=== PATIENT | female | born 1940 | race Caucasian/White ===

== ENCOUNTER 2020-07-06 14:35 | Observation (INO) | payer MEDICARE ==
[~2020-07-06] VITALS: Ht 160 cm; Wt 65.8 kg
--- NOTE | 2020-07-06 14:53 | EKG ---
[address] [address] Test Date: 2020-07-06 Test Time: 14:46:58 Pat Name: HOMAR MEZA Department: Room: Gender: F Director Consumer: : 1940 Requested By: JESSICA JOSHI Order Number: [id number] Reading MD: Measurements Intervals [place] Rate: 59 P: MI: QRS: 13 QRSD: 90 T: -49 QT: 380 QTc: 380 Interpretive Statements IRREGULAR RHYTHM, NO P-WAVE FOUND INCOMPLETE RIGHT BUNDLE BRANCH BLOCK T ABNORMALITY IN ANTEROLATERAL LEADS INFEROLATERAL LEADS ABNORMAL ECG RI6.02 No previous ECG available for comparison
--- NOTE | 2020-07-06 14:55 | PHYS DOC ---
Past History Past Medical History: Dementia, Diabetes, High Cholesterol, Hypertension, Other (CLL) Adult General Chief Complaint Chief Complaint: ALTERED MENTAL STATUS HPI HPI Patient is a 79-year-old female who presents via EMS for altered mental status. Patient lives at home alone and typically performs activities of daily living without issue. Home health nurse visited her today and noticed patient had decreased level of mentation and was not oriented to time which is unusual for patient. Home health nurse subsequently called EMS for transport to our facility for further evaluation. On arrival, patient hemodynamically stable. She has no complaints at present. She denies any recent medication changes. Admits history of atrial fibrillation and is on Eliquis, no trauma and/or falls in the past month. States she had episode of severe hypoglycemia approximately 1 month ago that required her to go to the hospital for treatment, further history regarding this incident is unclear. Patient has family friend who regularly checks on her and states these episodes have been increasing in frequency in the past 1 month. She has had been found with the car on stationary in her garage opening and closing garage door without any clue what she is doing. Daughter who lives in [place] was contacted and confirmed concerning stories like these. Patient's PCP (Dr. Bell) was contacted and case was discussed. He reports removing high risk medication such as insulin off patient's medication regimen last month. He has been trying to steadily decrease patient's high risk medication such as Ambien, benzodiazepines and narcotics. With that said, PCP is unclear if patient has been compliant with this as she lives alone Review of Systems Review of Systems Fourteen body systems of review of systems have been reviewed. See HPI for pertinent positives and negative responses, other tao all other systems are negative, non-pertinent or non-contributory Physical Exam Physical Exam Constitutional: Well developed, well nourished, no acute distress, non-toxic appearance. No obvious signs of trauma HENT: Normocephalic, atraumatic, bilateral external ears normal, oropharynx moist, no oral exudates, nose normal. Eyes: PERRLA, EOMI, conjunctiva normal, no discharge. Neck: Normal range of motion, no tenderness, supple, no stridor. Cardiovascular: Heart rate regular, irregular rhythm, no murmurs rubs or gallops Lungs & Thorax: Bilateral breath sounds clear to auscultation Abdomen: Bowel sounds normal, soft, no tenderness, no masses, no pulsatile masses. Nonsurgical abdomen, no peritoneal signs Skin: Warm, dry, no erythema, no rash. Back: No tenderness, no CVA tenderness. Extremities: No tenderness, no cyanosis, no clubbing, ROM intact, no edema. Neurologic: Alert and oriented X 3, grossly normal motor & sensory function, no focal deficits noted. Gait unremarkable Psychologic: Affect normal, judgement normal, mood normal. Current Patient Data Vital Signs Vital Signs Date Time Temp Pulse Resp B/P (MAP) Pulse Ox O2 Delivery O2 Flow Rate FiO2 07/06/20 14:57 98.1 69 16 150/109 (123) 98 Room Air Lab Results Laboratory Tests Test 07/06/20 14:40 07/06/20 14:42 White Blood Count 9.0 x10^3/uL (4.0-11.0) Red Blood Count 4.39 x10^6/uL (3.50-5.40) Hemoglobin 12.2 g/dL (12.0-15.5) Hematocrit 37.8 % (36.0-47.0) Mean Corpuscular Volume 86 fL (79-100) Mean Corpuscular Hemoglobin 28 pg (25-35) Mean Corpuscular Hemoglobin Concent 32 g/dL (31-37) Red Cell Distribution Width 17.1 % (11.5-14.5) Platelet Count 133 x10^3/uL (140-400) Neutrophils (%) (Auto) 59 % (31-73) Lymphocytes (%) (Auto) 28 % (24-48) Monocytes (%) (Auto) 9 % (0-9) Eosinophils (%) (Auto) 3 % (0-3) Basophils (%) (Auto) 1 % (0-3) Neutrophils # (Auto) 5.3 x10^3uL (1.8-7.7) Lymphocytes # (Auto) 2.6 x10^3/uL (1.0-4.8) Monocytes # (Auto) 0.8 x10^3/uL (0.0-1.1) Eosinophils # (Auto) 0.2 x10^3/uL (0.0-0.7) Basophils # (Auto) 0.1 x10^3/uL (0.0-0.2) Sodium Level 140 mmol/L (136-145) Potassium Level 3.5 mmol/L (3.5-5.1) Chloride Level 100 mmol/L (98-107) Carbon Dioxide Level 29 mmol/L (21-32) Anion Gap 11 (6-14) Blood Urea Nitrogen 16 mg/dL (7-20) Creatinine 1.0 mg/dL (0.6-1.0) Estimated GFR (Cockcroft-Gault) 53.8 Glucose Level 157 mg/dL (70-99) Calcium Level 9.2 mg/dL (8.5-10.1) Troponin I Quantitative < 0.017 ng/mL (0-0.055) Glucose (Fingerstick) 144 mg/dL (70-99) EKG EKG EKG ordered and interpreted by myself at 1451 hrs. as atrial fibrillation that is rate controlled with ventricular rate of 59 bpm, no QTC prolongation, no axis deviation, T wave inversions in leads II, 3, aVF, no STEMI. No prior EKG to compare to Radiology/Procedures Radiology/Procedures PROCEDURE: CT HEAD WO CONTRAST CT Head W/O Contrast: History: Reason: AMS, CONFUSION / Spl. Instructions: / History: Comparison: none Axial images were obtained without contrast. There is moderate diffuse atrophy. There is no mass effect, extraaxial fluid collections or hydrocephalus. There is no focal loss of vicente-white matter distinction to suggest acute ischemia, i.e. stroke. Impression: No acute findings. [facility] Compliance Statement: One or more of the following individualized dose reduction techniques were utilized for this examination: 1. Automated exposure control 2. Adjustment of the mA and/or kV according to patient size 3. Use of iterative reconstruction technique Electronically signed by: Froy Anne III, MD (07/06/2020 3:05 PM) [facility] PROCEDURE: PORTABLE CHEST 1V EXAM: PORTABLE CHEST 1V INDICATION: Reason: AMS / Spl. Instructions: / History: . TECHNIQUE: Single view COMPARISON: None FINDINGS: The heart size is upper normal. The great vessels appear unremarkable. There is no hilar or mediastinal mass. The lungs are clear. There is no pleural effusion or pneumothorax. There are no significant osseous abnormalities. IMPRESSION: No active cardiopulmonary disease. Electronically signed by: Aide Valentin MD (07/06/2020 3:18 PM) [id number] Heart Score HEART Score for Chest Pain: HEART Score for Chest Pain Response (Comments) Value History Slighlty/Non-Suspicious 0 ECG Normal 0 Age > 65 2 Risk Factors >3 Risk Factors or Hx CAD 2 Troponin < Normal Limit 0 Total 4 Risk Factors: Risk Factors: DM, Current or recent (<one month) smoker, HTN, HLP, family history of CAD, obesity. Risk Scores: Risk Factors: DM, Current or recent (<one month) smoker, HTN, HLP, family history of CAD, obesity. Course & Med Decision Making Course & Med Decision Making Pertinent Labs and Imaging studies reviewed. (See chart for details) Discussed with patient, daughter, and PCP most likely diagnosis of altered mentation from polypharmacy. Still pending urinalysis at this time to rule out any true infectious causes of patient's condition Patient otherwise ANO x3 and hemodynamically stable at present. I discussed need for admission with hospitalist, Dr. Oseguera, who agreed to admit patient under his care for continued medical management. We agreed she would benefit from observation and will omit high risk medication administration such as Ambien Patient and daughter notified of this decision and both amenable. All questions and concerns addressed prior to ER departure to [facility] for further medical management in stable condition Dragnay Disclaimer Dragon Disclaimer This electronic medical record was generated, in whole or in part, using a voice recognition dictation system. Departure Departure: Impression: Primary Impression: AMS (altered mental status) Additional Impressions: At risk for polypharmacy Family history of CLL (chronic lymphoid leukemia) Atrial fibrillation Anticoagulant prescribed Disposition: ADMITTED INPT THIS HOSP ([facility]) Admitting Physician: Kenneth Oseguera Condition: STABLE Problem Qualifiers JESSICA JOSHI DO Jul 06, 2020 14:55
[2020-07-06 14:58] LABS: BASO # 0.1 x10^3/uL (0.0-0.2); BASO % 1 % (0-3); EOS # 0.2 x10^3/uL (0.0-0.7); EOS % 3 % (0-3); HEMATOCRIT 37.8 % (36.0-47.0); HEMOGLOBIN 12.2 g/dL (12.0-15.5); LYMPH # 2.6 x10^3/uL (1.0-4.8); LYMPH % 28 % (24-48); MEAN CORPUSCULAR HEMOGLOBIN 28 pg (25-35); MEAN CORPUSCULAR HGB CONC 32 g/dL (31-37); MEAN CORPUSCULAR VOLUME 86 fL (79-100); MONO # 0.8 x10^3/uL (0.0-1.1); MONO % 9 % (0-9); NEUT # 5.3 x10^3uL (1.8-7.7); NEUT % 59 % (31-73); PLATELET COUNT 133 x10^3/uL (140-400); RED BLOOD COUNT 4.39 x10^6/uL (3.50-5.40); RED CELL DISTRIBUTION WIDTH 17.1 % (11.5-14.5)
[2020-07-06 15:08] LABS: CALCIUM 9.2 mg/dL (8.5-10.1); GFR 53.8; POTASSIUM 3.5 mmol/L (3.5-5.1)
--- NOTE | 2020-07-06 15:09 | RAD ---
CT Head W/O Contrast: History: Reason: AMS, CONFUSION / Spl. Instructions: / History: Comparison: none Axial images were obtained without contrast. There is moderate diffuse atrophy. There is no mass effect, extraaxial fluid collections or hydrocephalus. There is no focal loss of vicente-white matter distinction to suggest acute ischemia, i.e. stroke. Impression: No acute findings. [facility] Compliance Statement: One or more of the following individualized dose reduction techniques were utilized for this examination: 1. Automated exposure control 2. Adjustment of the mA and/or kV according to patient size 3. Use of iterative reconstruction technique Electronically signed by: Froy Anne III, MD (07/06/2020 3:05 PM) [facility]
--- NOTE | 2020-07-06 15:21 | RAD ---
EXAM: PORTABLE CHEST 1V INDICATION: Reason: AMS / Spl. Instructions: / History: . TECHNIQUE: Single view COMPARISON: None FINDINGS: The heart size is upper normal. The great vessels appear unremarkable. There is no hilar or mediastinal mass. The lungs are clear. There is no pleural effusion or pneumothorax. There are no significant osseous abnormalities. IMPRESSION: No active cardiopulmonary disease. Electronically signed by: Aide Valentin MD (07/06/2020 3:18 PM) [id number]
[2020-07-06 19:27] VITALS: BP 168/79
[2020-07-06 19:31] LABS: BILIRUBIN,URINE NEG (NEG); CLARITY,URINE HAZY; COLOR,URINE STRAW; GLUCOSE,URINE NEG (NEG)
[2020-07-06 19:32] LABS: BACTERIA,URINE MOD /HPF (0-FEW); NITRITE,URINE NEG (NEG); SQUAMOUS EPITHELIAL CELL,UR MANY /LPF; UROBILINOGEN,URINE 0.2 mg/dL (0.2 mg/dL)
[2020-07-06] MEDS ORDERED: diazePAM 2 MG TABLET. PO PRN (20:45)
[2020-07-06] MEDS ORDERED: HYDROcodone/APAP 10/325 1 TAB TABLET PO PRN (20:45)
[2020-07-06] MEDS ORDERED: FUROSEMIDE 40 MG TABLET PO SCH (20:45)
[2020-07-06] MEDS ORDERED: ACETAMINOPHEN 500 MG TABLET PO PRN (20:45)
[2020-07-06] MEDS ORDERED: ZOLPIDEM 5 MG TABLET. PO PRN (20:45)
[2020-07-06] MEDS ORDERED: hydrOXYzine HCL 25 MG TABLET PO PRN (20:45)
[2020-07-06] MEDS ORDERED: MECLIZINE 12.5 MG TABLET. PO PRN (20:45)
[2020-07-06] MEDS ORDERED: DOXYCYCLINE HYCLATE 100 MG TABLET PO SCH (21:00)
[2020-07-06] MEDS ORDERED: MORPHINE ER 15 MG TABLET.ER PO SCH (21:00)
[2020-07-06] MEDS ORDERED: NITROFURANTOIN MONOHYD/M-CRYST 100 MG CAPSULE. PO SCH (21:00)
[2020-07-06] MEDS ORDERED: CEPHALEXIN 250 MG CAPSULE PO ONE (21:00)
[2020-07-06] MEDS ORDERED: COLESTIPOL HCL 1 GM TABLET. PO SCH (22:00)
[2020-07-06] MEDS: DULoxetine HCL 30 MG CAPSULE.DR PO SCH (22:10)
[2020-07-06] MEDS: METOPROLOL TART IMMED RELEASE 50 MG TABLET PO SCH (22:11)
[2020-07-06] MEDS: APIXABAN 5 MG TABLET. PO SCH (22:11)
[2020-07-06] MEDS ORDERED: MONTELUKAST 10 MG TABLET. PO SCH (22:15)
[2020-07-06 22:24] VITALS: BP 174/77
--- NOTE | 2020-07-06 22:40 | NUR ---
Pt admitted to [facility] via EMS accompanied by ER staff. Pt ambulated from gurney to bed w/o difficulty. Pt calm and cooperative during assessment. Pt denies any pain at this time. Pt appeared to be alert x4 at beginning of assessment but become slightly forgetful as assessment continued. Pt. belonging are left w/ pt in room. POC was discussed w/ verbal understanding. DR called and medications are reconciled. Call light is in reach and will continue to monitor.
[2020-07-07 05:26] VITALS: BP 149/82
[2020-07-07] MEDS ORDERED: PANTOPRAZOLE 40 MG TABLET. PO SCH (07:30)
[2020-07-07] MEDS ORDERED: metFORMIN 500 MG TABLET PO SCH (08:00)
[2020-07-07] MEDS ORDERED: POTASSIUM CHLORIDE 10 MEQ TABLET.ER. PO SCH (08:00)
[2020-07-07] MEDS: APIXABAN 5 MG TABLET. PO SCH (08:13)
[2020-07-07] MEDS: DULoxetine HCL 30 MG CAPSULE.DR PO SCH (08:13)
[2020-07-07] MEDS: METOPROLOL TART IMMED RELEASE 50 MG TABLET PO SCH (08:13)
[2020-07-07] MEDS: DIGOXIN 125 MCG TABLET PO SCH ×2 (08:14→08:22)
[2020-07-07 08:22] VITALS: BP 149/82
[2020-07-07] MEDS ORDERED: TRIAMCINOLONE ACETONIDE 0.1% TOPICAL CREAM 15GM TUBE. TP SCH (09:00)
--- NOTE | 2020-07-07 09:56 | HP ---
ADMIT DATE: 07/06/2020 ATTENDING PHYSICIAN: Dr. Chavez. CHIEF COMPLAINT: Altered mentation. HISTORY OF PRESENT ILLNESS: The patient is a pleasant 79-year-old female admitted through the ED with altered mentation. She lives at home. She had home health nurses call on her and they found her to have decreased level of mentation and not oriented to time, which is unusual for the patient. She has been taking oral hydrocodone along with Ambien and this may have accumulated. The home health nurse subsequently called EMS. She is also on Eliquis. She has had diabetes. There are some episodes of hypoglycemia, some recent falls and unfortunately she does not have any family close by. She has a daughter who lives in [place]. 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 Therefore, she had a workup was fairly unremarkable. CT of the head did not show acute changes, we suspect was due to her medications. She was admitted for observation status overnight. PAST MEDICAL HISTORY: Significant for type 2 diabetes, mild dementia, hyperlipidemia, hypertension and supposedly chronic lymphocytic leukemia. I do not see an elevated white count. MEDICATIONS: Reviewed. She was taking Ambien at bedtime, hydrocodone p.r.n., Tylenol, Eliquis twice a day, digoxin, Cymbalta, meclizine, metformin, metoprolol, Singulair, Protonix, potassium, and triamcinolone. ALLERGIES: She has allergies to SULFA, WHICH CAUSES A RASH. SOCIAL HISTORY: She is a nonsmoker, nondrinker. FAMILY HISTORY: Noncontributory. REVIEW OF SYSTEMS: Significant for the confusion. By the time I saw her, she was very alert. She is reading a book. She had no respiratory distress. She denied any fevers, chills, weight loss, decreased appetite. She has no COVID exposure. All other systems reviewed and turned to be negative. PHYSICAL EXAMINATION: GENERAL: When I saw her, this is a pleasant elderly female. INITIAL VITAL SIGNS: Showed a blood pressure 149/82, pulse is 62 and regular, temperature 98.3 degrees Fahrenheit, oxygen saturation 92% on room air. HEENT: Head is without trauma. Pupils are reactive. Sclerae nonicteric. Oropharynx is clear. NECK: Supple, no bruits identified. LUNGS: Otherwise clear. CARDIOVASCULAR: Showed regular heart tones. No gallops. Peripheral pulses are palpable and full. ABDOMEN: Soft, scaphoid, nontender, no guarding. EXTREMITIES: Without cyanosis or edema. NEUROLOGIC: Focally intact. Speech is fluent. SKIN: Otherwise warm and dry. PERTINENT LABORATORY STUDIES: The admission hemoglobin was 12.2 g/dL with white count of 9000. Chemistry panel showed a sodium 140, potassium 3.5 mEq, nonfasting blood sugar 157. Creatinine is 1.0 mg/dL. The obligatory CT of the head done in the ED showed diffuse atrophy, that is moderate, no mass effect. There is no evidence of acute strokes or bleeds. Chest x-ray was clear without any cardiopulmonary process. ASSESSMENT: 1. A 79-year-old female with altered mentation related to her narcotics and benzodiazepines. 2. Underlying dementia that is fairly mild. 3. Essential hypertension. 4. Gastroesophageal reflux disease. 5. Insomnia, which led to her Ambien. PLAN: 1. Observation status. 2. We have held her benzodiazepines and narcotics. 3. Diet as tolerated. 4. Other home meds continued. PETERSON CHAVEZ MD DR: YESENIA/kalyani JOB#: [id number] / [id number] PETERSON Davison
[2020-07-07] MEDS ORDERED: COLE1TAB2 PO (10:24)
[2020-07-07] MEDS ORDERED: TIMO5DRO5 OS (10:24)
[2020-07-07] MEDS ORDERED: MULT200T4 PO (10:24)
[2020-07-07] MEDS ORDERED: ERGO500027 PO (10:24)
[2020-07-07] MEDS ORDERED: ZOLP10TA PO (10:24)
[2020-07-07] MEDS ORDERED: IBRU140C PO (10:24)
[2020-07-07] MEDS ORDERED: DIGO125T17 PO (10:24)
[2020-07-07] MEDS ORDERED: FLUT15.812 NS (10:24)
[2020-07-07] MEDS ORDERED: HYDR25TA PO (10:24)
[2020-07-07] MEDS ORDERED: SITA1TAB11 PO (10:24)
[2020-07-07] MEDS ORDERED: FURO40TA4 PO (10:24)
[2020-07-07] MEDS ORDERED: APIX5TAB3 PO (10:24)
[2020-07-07] MEDS ORDERED: CYAN10002 IM (10:24)
[2020-07-07] MEDS ORDERED: POTA10TA12 PO (10:24)
[2020-07-07] MEDS ORDERED: PANT40TA3 PO (10:24)
[2020-07-07] MEDS ORDERED: ALBU2.5V8 IH (10:24)
[2020-07-07] MEDS ORDERED: TRIA100A TP (10:24)
[2020-07-07] MEDS ORDERED: MONT10TA80 PO (10:24)
[2020-07-07] MEDS ORDERED: METO50TA6 PO (10:24)
[2020-07-07] MEDS ORDERED: DIAZ2TAB PO (10:24)
[2020-07-07] MEDS ORDERED: DULO30CA2 PO (10:24)
[2020-07-07] MEDS ORDERED: MORP15TA80 PO (10:24)
[2020-07-07] MEDS ORDERED: HYDR-2769 PO (10:24)
[2020-07-07] MEDS ORDERED: MECL-75 PO (10:24)
--- NOTE | 2020-07-07 11:12 | NUR ---
DISCHARGE NOTE-Reviewed discharge teaching with patient, medication list reviewed ESPECIALLY discontinued sedating medications. Returning home with services. Telemetry discontinued, PIV discontinued as well. Escorted to exit by staff via wheelchair. Transportation home by taxi.
--- NOTE | 2020-07-07 12:40 | DS ---
DATE OF DISCHARGE: 07/07/2020 ATTENDING PHYSICIAN: Dr. Chavez. FINAL DISCHARGE DIAGNOSES: 1. Altered mentation due to medications, resolved. 2. Paroxysmal atrial fibrillation. 3. Type 2 diabetes mellitus. 4. Essential hypertension. 5. Gastroesophageal reflux disease. 6. Underlying depression. 7. Early onset dementia. HISTORY AND PHYSICAL: This is a pleasant 79-year-old female admitted through the ED with altered mentation. She was sent here by her home health services people. She was not oriented to place and time and was not acting normal. She had been on prescription hydrocodone along with Ambien at bedtime. PHYSICAL EXAMINATION: Please see the dictated note. PERTINENT LABORATORY AND X-RAY STUDIES: The obligatory CT of the head showed no evidence of acute stroke. She did have moderate cortical atrophy. Chest x-ray was entirely clear. Her lab work showed normal blood sugars, nonfasting blood sugar of 144. Troponin level was nonischemic. Hemoglobin maintained at 12.2 g/dL with white count of 9000. Electrolytes within normal range. Creatinine is 1.0 mg/dL. COURSE IN THE HOSPITAL: The patient was admitted for observation overnight. We held her Ambien and pain meds, some of the other home meds were continued. She did well. She was quite alert. I had a fairly good conversation with her. Unfortunately, she lives alone. She has some family, a son lives overseas in [place], a daughter lives in [place]. She has good family support. She is currently living in her own home. She was stable, her vitals were stable and she wanted to go home. I felt this was reasonable. I have encouraged her to take the Ambien only as needed and to certainly not to take it if she did not have any issues with insomnia. Same thing with the pain medicine, she should be judicious in her use of her pain medications. Her other home medications are unchanged. I would recommend that she continue her Eliquis twice a day as prescribed, digoxin 125 mcg daily, metformin 1000 mg b.i.d., potassium supplementation 10 mEq daily, Protonix 40 mg daily, metoprolol 50 mg b.i.d., Eliquis as noted 5 b.i.d., Singulair 10 mg daily, Cymbalta 30 mg b.i.d., and meclizine as needed. She had some prescriptions in the past for MS Contin as well as hydrocodone. I recommended that she stop these medicines at this time. Same thing with prescribed Valium and Ambien. The patient was then discharged from our hospital in stable condition with explicit instructions and followup care. I suggested a followup visit with Dr. Rendon at the regular scheduled time. PETERSON CHAVEZ MD DR: YESENIA/kalyani JOB#: [id number] / [id number] PETERSON Davison
--- NOTE | 2020-07-08 14:59 | NUR ---
IP: patient notified of COVID result.
== END 2020-07-07 11:10 | disposition home health service (06) ==
LOC: ER 14:35 → INTOOBSV 18:00 → 1 SOUTH 18:00
PROVIDERS: ADMIT Hospitalist; ATTEND Hospitalist
DX: R41.82 Altered mental status, unspecified (principal); Z20.828 Contact with and (suspected) exposure to other viral communicable diseases; T42.4X5A Adverse effect of benzodiazepines, initial encounter; G47.00 Insomnia, unspecified; F03.90 Unspecified dementia, unspecified severity, without behavioral disturbance, psychotic disturbance, mood disturbance, and anxiety; I10 Essential (primary) hypertension; K21.9 Gastro-esophageal reflux disease without esophagitis; E11.649 Type 2 diabetes mellitus with hypoglycemia without coma; I48.0 Paroxysmal atrial fibrillation; E78.5 Hyperlipidemia, unspecified; E78.00 Pure hypercholesterolemia, unspecified; F32.9 Major depressive disorder, single episode, unspecified; C91.10 Chronic lymphocytic leukemia of B-cell type not having achieved remission; Z79.84 Long term (current) use of oral hypoglycemic drugs; Z79.01 Long term (current) use of anticoagulants; Z79.899 Other long term (current) drug therapy
CPT/HCPCS: 36415; 70450; 71045; 80048; 81001; 82947; 84484; 85025; 87086; 93005; 99285; G0378; U0003; G0379

== ENCOUNTER → 2021-01-26 | Outpatient (CLI) | payer MEDICARE ==
[~2021-01-26] MED LIST: ALBU2.5V8 IH; APIX5TAB3 PO; COLE1TAB2 PO; CYAN10002 IM; DIAZ2TAB PO; DIGO125T17 PO; DULO30CA2 PO; ERGO500027 PO; FLUT15.812 NS; FURO40TA4 PO; HYDR-2769 PO; HYDR25TA PO; IBRU140C PO; MECL-75 PO; METO50TA6 PO; MONT10TA80 PO; MORP15TA80 PO; MULT200T4 PO; PANT40TA3 PO; POTA10TA12 PO; SITA1TAB11 PO; TIMO5DRO5 OS; TRIA100A TP; ZOLP10TA PO
[2021-01-26 12:04] LABS: HEMATOCRIT 24.2 % (36.0-47.0); HEMOGLOBIN 7.8 g/dL (12.0-15.5); RED BLOOD COUNT 2.66 x10^6/uL (3.50-5.40); RED CELL DISTRIBUTION WIDTH 16.9 % (11.5-14.5); WHITE BLOOD COUNT 17.2 x10^3/uL (4.0-11.0)
[2021-01-26 13:00] VITALS: BP 107/45
[2021-01-26 14:08] VITALS: BP 104/48
[2021-01-26 14:38] VITALS: BP 106/52
[2021-01-26 15:38] VITALS: BP 96/51
--- NOTE | 2021-01-26 16:08 | NUR ---
Blood Transfusion started at 1423. Tubing was primed with Normal Saline and then primed with blood. Transfusion started at 75mls/hr, patient monitored closely x 15 mins. No reaction noted, transfusion increased to 125mls/hr.
[2021-01-26 16:38] VITALS: BP 106/46
[2021-01-26 17:16] LABS: HEMATOCRIT 26.7 % (36.0-47.0); HEMOGLOBIN 8.7 g/dL (12.0-15.5); RED BLOOD COUNT 2.84 x10^6/uL (3.50-5.40); RED CELL DISTRIBUTION WIDTH 16.9 % (11.5-14.5); WHITE BLOOD COUNT 15.4 x10^3/uL (4.0-11.0)
--- NOTE | 2021-01-26 17:46 | NUR ---
Infusion completed. Patient tolerated the infusion well. No reactions noted. Peripheral IV flushed and removed with no complications. Patient left the unit via ambulation escorted by this RN. Patient transported home by a friend.
== END | disposition home or self-care (01) ==
LOC: OPINF 11:29
PROVIDERS: ATTEND Family Medicine
DX: D64.9 Anemia, unspecified (principal); I10 Essential (primary) hypertension; K21.9 Gastro-esophageal reflux disease without esophagitis; I48.0 Paroxysmal atrial fibrillation; E78.00 Pure hypercholesterolemia, unspecified; F32.9 Major depressive disorder, single episode, unspecified; E78.5 Hyperlipidemia, unspecified; Z79.01 Long term (current) use of anticoagulants; Z79.84 Long term (current) use of oral hypoglycemic drugs; Z79.899 Other long term (current) drug therapy
CPT/HCPCS: 36415; 36430; 85027; 86850; 86900; 86901; 86920; P9016

== ENCOUNTER 2021-10-09 12:21 | Emergency (ER) | payer MEDICARE ==
[~2021-10-09] VITALS: Ht 160 cm; Wt 77.0 kg
[~2021-10-09 12:21] MED LIST changes: -ERGO500027 PO; +ERGO500090 PO; +POTA-116 PO; -POTA10TA12 PO
[2021-10-09] MEDS ORDERED: IOHEXOL 350 MG/ML 100 ML VIAL. IV ONE (12:30)
--- NOTE | 2021-10-09 12:40 | RAD ---
EXAM: CT head without contrast INDICATION: Stroke alert, right-sided weakness and facial 0 COMPARISON: CT head 07/06/2020 TECHNIQUE: Axial CT imaging through the head without intravenous contrast. Sagittal and coronal refor mats were obtained. One or more of the following individualized dose reduction techniques were utilized for this examinat ion: 1. Automated exposure control 2. Adjustment of the mA and/or kV according to patient size 3. Use of iterative reconstruction technique. FINDINGS: ventricles and sulci are mildly enlarged, reflecting age-related volume loss. Martines-white matter diffe rentiation is maintained. There is no intracranial hemorrhage, acute infarct, or mass lesion. Basal c isterns are clear. The skull and scalp are intact. Paranasal sinuses and mastoid air cells are clear. Globes and orbits are intact.. IMPRESSION: No acute intracranial abnormality. FOR INTERNAL CODING PURPOSES Critical result: Findings discussed with PATRICK ROMERO DO at 10/09/2021 12:36 PM. RESULT CODE: (C) Electronically signed by: Yokasta Villarreal MD (10/09/2021 12:38 PM) [id number]
[2021-10-09 12:45] LABS: BASO # 0.1 x10^3/uL (0.0-0.2); BASO % 0 % (0-3); EOS # 0.3 x10^3/uL (0.0-0.7); EOS % 2 % (0-3); HEMATOCRIT 37.8 % (36.0-47.0); HEMOGLOBIN 12.1 g/dL (12.0-15.5); LYMPH # 12.1 x10^3/uL (1.0-4.8); LYMPH % 66 % (24-48); MEAN CORPUSCULAR HEMOGLOBIN 28 pg (25-35); MEAN CORPUSCULAR HGB CONC 32 g/dL (31-37); MEAN CORPUSCULAR VOLUME 87 fL (79-100); MONO # 0.9 x10^3/uL (0.0-1.1); MONO % 5 % (0-9); NEUT # 5.1 x10^3uL (1.8-7.7); NEUT % 28 % (31-73); PLATELET COUNT 178 x10^3/uL (140-400); RED BLOOD COUNT 4.37 x10^6/uL (3.50-5.40); RED CELL DISTRIBUTION WIDTH 15.6 % (11.5-14.5); WHITE BLOOD COUNT 18.5 x10^3/uL (4.0-11.0)
[2021-10-09] MEDS ORDERED: CONTRAST GIVEN. MC PRN (12:45)
[2021-10-09 12:58] LABS: GFR 53.6; POTASSIUM 4.8 mmol/L (3.5-5.1)
[2021-10-09] MEDS ORDERED: ASPIRIN ENTERIC COATED 325 MG TABLET.DR. PO ONE ×2 (13:00→13:01)
[2021-10-09 13:04] LABS: ALBUMIN 3.7 g/dL (3.4-5.0); ALBUMIN/GLOBULIN RATIO 1.2 (1.0-1.7); MAGNESIUM 1.4 mg/dL (1.8-2.4); TOTAL BILIRUBIN 0.4 mg/dL (0.2-1.0); TOTAL PROTEIN 6.7 g/dL (6.4-8.2)
--- NOTE | 2021-10-09 13:04 | PHYS DOC ---
Past History Past Medical History: Dementia, Diabetes, High Cholesterol, Hypertension, Other Additional Past Medical Histor: CLL cancer Past Surgical History: , Tonsillectomy Additional Past Surgical Histo: WATCHMAN PROCEDURE Alcohol Use: None General Adult EDM: Chief Complaint: NEURO SYMPTOMS/DEFICITS HPI: HPI: Patient is a 80-year-old female presents with sudden onset right sided weakness, decreased sensation, double vision, and slowed speech. Last known well 11:30 AM. patient denies pain. Patient was at home doing laundry when symptoms began. She called a friend to bring her to the hospital. Medical history includes atrial fibrillation. Patient had Watchman procedure done in May. Has been off blood thinners since June. Now taking a baby aspirin daily. Patient reports weakness and numbness is worst in right leg. Review of Systems: Review of Systems: Constitutional: Denies fever or chills Eyes: Reports changes in vision; denies redness or eye pain HENT: Denies nasal congestion or sore throat Respiratory: Denies cough or shortness of breath Cardiovascular: Denies chest pain or palpitations GI: Denies abdominal pain, nausea, or vomiting : Denies dysuria or hematuria Musculoskeletal: Denies back pain or joint pain Integument: Denies rash or skin lesions Neurologic: Reports numbness on right side and focal weakness right lower and upper extremity. Denies headache or sensory changes Complete systems were reviewed and found to be within normal limits, except as documented in this note. Current Medications: Current Meds: Current Medications Medications (Trade) Dose Ordered Sig/Chanda Start Time Stop Time Status Last Admin Dose Admin Aspirin (Aspirin Enteric Coated) 325 mg 1X ONCE 10/09/21 13:00 10/09/21 13:01 Info (Do NOT chart on this entry -- for MONITORING) 1 each PRN DAILY PRN 10/09/21 12:45 10/11/21 12:44 Iohexol (Omnipaque 350 Mg/ml) 100 ml 1X ONCE 10/09/21 12:30 10/09/21 12:31 DC 10/09/21 12:37 100 ML Allergies: Allergies: Allergies Coded Allergies Type Severity Reaction Last Updated Verified Sulfa (Sulfonamide Antibiotics) Allergy Unknown 07/06/20 Yes Physical Exam: PE: Constitutional: Elderly well nourished, no acute distress, non-toxic appearance HENT: Normocephalic, atraumatic Eyes: PERRL, EOMI, conjunctiva normal, no discharge, reports diplopia Neck: Normal range of motion, no tenderness, supple Lungs & Thorax: No respiratory distress, equal chest rise and fall. CTAB. CV: Irregularly irregular, normal heart sounds Abdomen: Soft, no tenderness Skin: Warm, dry, no erythema, no rash Back: No tenderness, no deformities Extremities: No tenderness, ROM intact, no edema. No pronator drift. Negative tselmd-ia-eduk test. Neurologic: Alert and oriented X 3, arm and leg raise equal bilaterally without drift, decreased sensation right upper and lower extremities sensory function, mild expression aphasia noted Psychologic: Affect normal, judgment normal Current Patient Data: Labs: Laboratory Tests Test 10/09/21 12:24 10/09/21 12:25 Glucose (Fingerstick) 137 mg/dL (70-99) H White Blood Count 18.5 x10^3/uL (4.0-11.0) H Red Blood Count 4.37 x10^6/uL (3.50-5.40) Hemoglobin 12.1 g/dL (12.0-15.5) Hematocrit 37.8 % (36.0-47.0) Mean Corpuscular Volume 87 fL (79-100) Mean Corpuscular Hemoglobin 28 pg (25-35) Mean Corpuscular Hemoglobin Concent 32 g/dL (31-37) Red Cell Distribution Width 15.6 % (11.5-14.5) H Platelet Count 178 x10^3/uL (140-400) Neutrophils (%) (Auto) 28 % (31-73) L Lymphocytes (%) (Auto) 66 % (24-48) H Monocytes (%) (Auto) 5 % (0-9) Eosinophils (%) (Auto) 2 % (0-3) Basophils (%) (Auto) 0 % (0-3) Neutrophils # (Auto) 5.1 x10^3uL (1.8-7.7) Lymphocytes # (Auto) 12.1 x10^3/uL (1.0-4.8) H Monocytes # (Auto) 0.9 x10^3/uL (0.0-1.1) Eosinophils # (Auto) 0.3 x10^3/uL (0.0-0.7) Basophils # (Auto) 0.1 x10^3/uL (0.0-0.2) Platelet Estimate Pending Sodium Level 133 mmol/L (136-145) L Potassium Level 4.8 mmol/L (3.5-5.1) Chloride Level 98 mmol/L (98-107) Carbon Dioxide Level 26 mmol/L (21-32) Anion Gap 9 (6-14) Blood Urea Nitrogen 18 mg/dL (7-20) Creatinine 1.0 mg/dL (0.6-1.0) Estimated GFR (Cockcroft-Gault) 53.6 BUN/Creatinine Ratio 18 (6-20) Glucose Level 137 mg/dL (70-99) H Calcium Level 9.0 mg/dL (8.5-10.1) Magnesium Level Pending Total Bilirubin Pending Aspartate Amino Transferase (AST) Pending Alanine Aminotransferase (ALT) Pending Alkaline Phosphatase Pending Total Protein Pending Albumin Pending Albumin/Globulin Ratio Pending Vital Signs: Vital Signs Date Time Temp Pulse Resp B/P (MAP) Pulse Ox O2 Delivery O2 Flow Rate FiO2 10/09/21 12:40 97.8 74 18 135/64 (87) 99 Room Air EKG: EKG: @1242 Afib at 62bpm, NO ST elevation, QRS 88ms, QT/QTc 364/371ms, t wave inversions II-III and aVF. Radiology/Procedures: Radiology/Procedures: PROCEDURE: CT CODE STROKE HEAD WO EXAM: CT head without contrast INDICATION: Stroke alert, right-sided weakness and facial 0 COMPARISON: CT head 07/06/2020 TECHNIQUE: Axial CT imaging through the head without intravenous contrast. Sagit deborah and coronal reformats were obtained. One or more of the following individualized dose reduction techniques were utilized for this examination: 1. Automated exposure control 2. Adjustment of the mA and/or kV according to patient size 3. Use of iterative reconstruction technique. FINDINGS: ventricles and sulci are mildly enlarged, reflecting age-related volume loss. Martines-white matter differentiation is maintained. There is no intracranial hemorrhage, acute infarct, or mass lesion. Basal cisterns are clear. The skull and scalp are intact. Paranasal sinuses and mastoid air cells are clear. Globes and orbits are intact.. IMPRESSION: No acute intracranial abnormality. FOR INTERNAL CODING PURPOSES Critical result: Findings discussed with PATRICK ROMERO DO at 10/09/2021 12:36 PM. RESULT CODE: (C) Electronically signed by: Yokasta Villarreal MD (10/09/2021 12:38 PM) [id number] PROCEDURE: PORTABLE CHEST 1V EXAM: XR CHEST 1V 10/09/2021 1:01 PM CLINICAL INDICATION: Code stroke, weakness COMPARISON: Chest radiograph 07/06/2020 TECHNIQUE: AP view of the chest FINDINGS: The heart is normal in size. Lungs are well-expanded and clear. No pleural effusion or pneumothorax. No acute osseous abnormality. IMPRESSION: No acute cardiopulmonary abnormality. Electronically signed by: Yokasta Villarreal MD (10/09/2021 1:08 PM) [id number] PROCEDURE: CT ANGIOGRAPHY HEAD AND NECK STUDY: CT angiography of the head and neck INDICATION: Stroke alert, right-sided weakness, facial droop COMPARISON: CT head same day TECHNIQUE: Axial CT imaging of the head and neck utilizing angiography protocol and performed after the intravenous administration of contrast. reformats and 3D MIP acquisitions were obtained. Encountered areas of stenosis are measured per NASCET criteria. One or more of the following individualized dose reduction techniques were utilized for this examination: 1. Automated exposure control 2. Adjustment of the mA and/or kV according to patient size 3. Use of iterative reconstruction technique. FINDINGS: CTA NECK: Arch/Proximal Great Vessels: Heart is normal configuration. Great vessel origins are patent. Carotid Bifurcation/Cervical ICA: Mild calcifications at the carotid bifurcations. Common, internal, and external carotid arteries are normal in caliber and patent. No stenosis. Vertebral Arteries: Normal in caliber and patent. CTA HEAD: Posterior Circulation: The vertebral, basilar, superior cerebellar, and posterior cerebral arteries are normal in caliber and patent. Anterior Circulation: Mild narrowing of the cavernous and supraclinoid internal carotid due to calcifications. The middle cerebral, and anterior cerebral arteries are normal in caliber and patent. Veins: Dural venous sinuses are patent. MISCELLANEOUS: Mild degenerative disc disease, greatest at C5-C6 and C6-C7. Mild cervical kyphosis. Minimal anterolisthesis of C3 on C4 and C4 on C5. Chronic left maxillary sinus disease. IMPRESSION: No large vessel occlusion in the head or neck. FOR INTERNAL CODING PURPOSES Critical result: Findings discussed with PATRICK ROMERO DO at 10/09/2021 1:00 PM. RESULT CODE: (C) Electronically signed by: Yokasta Villarreal MD (10/09/2021 1:07 PM) [id number] Heart Score: C/O Chest Pain: No Course & Med Decision Making: Course & Med Decision Making Pertinent Labs and Imaging studies reviewed. (See chart for details) Patient presents as code stroke secondary to sudden onset of right-sided weakness, numbness, and difficulty with her speech. Code stroke initiated. NIHSS upon arrival 3 secondary to expressive aphasia, sensation decreased on right, and visual change. CT head without acute process. CTA head/neck without focal large vessel occlusion. EKG with A. fib rate controlled. Labs obtained and posted to chart. Last known well at 1130. Patient within window of time for TPA. Discussed case with Dr. Pena (neurology) at [facility]. Dr. Pena in agreement with TPA. TPA initiated. Patient requiring transfer for ICU admission to higher level facility with MRI capability for further evaluation and treatment at higher. Discussed with Dr. Interiano (hospitalist) at [facility] who is in agreement with admission. Discussed findings and plan with patient, who acknowledges understanding and agreement. Claudio Disclaimer: Claudio Disclaimer: This electronic medical record was generated, in whole or in part, using a voice recognition dictation system. Departure Departure: Impression: Primary Impression: Acute CVA (cerebrovascular accident) Additional Impressions: Hypomagnesemia Lactic acidosis Hx of chronic lymphocytic leukemia Disposition: 02 SHORT TERM HOSPITAL ([facility]- Dr. Inteirano accepting) Condition: GUARDED Referrals: PETERSON DE LEON MD (PCP) NIHSS - ED NIH Stroke Scale: NIH Stroke Scale Response (Comments) Value Level of Consciousness: 0 Alert/Responsive 0 LOC Questions: 0 Answers both correctly 0 LOC Commands: 0 Performs both tasks 0 Best Gaze: 0 Normal 0 Visual: 1 Partial hemianopia 1 Facial Palsy: 0 Normal, symmetrical 0 Motor - Left Arm 0 No drift 0 Motor - Right Arm 0 No drift 0 Motor - Left Leg 0 No drift 0 Motor: Right Leg 0 No drift 0 Limb Ataxia: 0 Absent 0 Sensory: 1 Mid to moderate loss 1 Best Language: 1 Mild to mod aphasia 1 Dysathria: 0 Normal 0 Extinction and Inattention: 0 Normal 0 Total 3 Critical Care Time Critical care time was 30 minutes which includes time at bedside, spent in discussion of patient's care with specialists and/or family members, with interpretation of laboratory and/or radiological studies and is exclusive of procedures. PATRICK ROMERO DO Oct 09, 2021 13:04
[2021-10-09 13:05] LABS: % LYMPHS 73 % (24-48); % MONOS 2 % (0-10); % SEGS 25 % (35-66); PLT ESTIMATE ADEQUATE (ADEQUATE)
[2021-10-09 13:06] LABS: SMUDGE CELLS PRESENT
--- NOTE | 2021-10-09 13:10 | RAD ---
EXAM: XR CHEST 1V 10/09/2021 1:01 PM CLINICAL INDICATION: Code stroke, weakness COMPARISON: Chest radiograph 07/06/2020 TECHNIQUE: AP view of the chest FINDINGS: The heart is normal in size. Lungs are well-expanded and clear. No pleural effusion or pne umothorax. No acute osseous abnormality. IMPRESSION: No acute cardiopulmonary abnormality. Electronically signed by: Yokasta Villarreal MD (10/09/2021 1:08 PM) [id number]
--- NOTE | 2021-10-09 13:10 | RAD ---
STUDY: CT angiography of the head and neck INDICATION: Stroke alert, right-sided weakness, facial droop COMPARISON: CT head same day TECHNIQUE: Axial CT imaging of the head and neck utilizing angiography protocol and performed after t he intravenous administration of contrast. reformats and 3D MIP acquisitions were obtained. Encounter ed areas of stenosis are measured per NASCET criteria. One or more of the following individualized dose reduction techniques were utilized for this examinat ion: 1. Automated exposure control 2. Adjustment of the mA and/or kV according to patient size 3. Use of iterative reconstruction technique. FINDINGS: CTA NECK: Arch/Proximal Great Vessels: Heart is normal configuration. Great vessel origins are patent. Carotid Bifurcation/Cervical ICA: Mild calcifications at the carotid bifurcations. Common, internal, and external carotid arteries are normal in caliber and patent. No stenosis. Vertebral Arteries: Normal in caliber and patent. CTA HEAD: Posterior Circulation: The vertebral, basilar, superior cerebellar, and posterior cerebral arteries a re normal in caliber and patent. Anterior Circulation: Mild narrowing of the cavernous and supraclinoid internal carotid due to calcif ications. The middle cerebral, and anterior cerebral arteries are normal in caliber and patent. Veins: Dural venous sinuses are patent. MISCELLANEOUS: Mild degenerative disc disease, greatest at C5-C6 and C6-C7. Mild cervical kyphosis. Minimal anteroli sthesis of C3 on C4 and C4 on C5. Chronic left maxillary sinus disease. IMPRESSION: No large vessel occlusion in the head or neck. FOR INTERNAL CODING PURPOSES Critical result: Findings discussed with PATRICK ROMERO DO at 10/09/2021 1:00 PM. RESULT CODE: (C) Electronically signed by: Yokasta Villarreal MD (10/09/2021 1:07 PM) [id number]
[2021-10-09] MEDS ORDERED: ALTEPLASE IV ONE (13:15)
[2021-10-09] MEDS ORDERED: ALTEPLASE 6.9 MG IV ONE (13:15)
[2021-10-09] MEDS ORDERED: IV NORMAL SALINE 100ML 100 ML IV ONE (13:15)
[2021-10-09 13:30] LABS: DIG 1.6 ng/dL (0.9-2.0)
[2021-10-09] MEDS ORDERED: MAGNESIUM SULFATE 2GM 50 ML IV ONE (14:30)
[2021-10-09 16:10] VITALS: BP 133/70
--- NOTE | 2021-10-09 20:31 | EKG ---
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
== END 2021-10-09 16:42 | disposition short-term general hospital (02) ==
LOC: ER 12:21
DX: I63.9 Cerebral infarction, unspecified (principal); Z20.822 Contact with and (suspected) exposure to COVID-19; E83.42 Hypomagnesemia; E87.2 Acidosis; Z85.6 Personal history of leukemia; E11.9 Type 2 diabetes mellitus without complications; E78.00 Pure hypercholesterolemia, unspecified; I10 Essential (primary) hypertension; F03.90 Unspecified dementia, unspecified severity, without behavioral disturbance, psychotic disturbance, mood disturbance, and anxiety; Z88.2 Allergy status to sulfonamides
CPT/HCPCS: 36415; 37195; 70450; 70496; 70498; 71045; 80053; 80162; 82140; 82553; 82947; 83605; 83735; 84484; 85007; 85025; 85610; 85730; 87426; 93005; 96365; 96366; 99291; C9803; J2997; J3475; Q9967; U0003